=== PATIENT | male | born 1950 | race Caucasian/White ===

== ENCOUNTER → 2023-02-07 07:37 | Outpatient (REF) | payer OTHER, SELFPAY | LOC: WOUND 07:37 | PROVIDERS: ATTENDING PHYSICIAN Surgery; REFERRING PHYSICIAN Family Medicine | DX: L97.222 Non-pressure chronic ulcer of left calf with fat layer exposed (principal); L97.312 Non-pressure chronic ulcer of right ankle with fat layer exposed; J96.12 Chronic respiratory failure with hypercapnia; N18.4 Chronic kidney disease, stage 4 (severe); J98.4 Other disorders of lung; F17.201 Nicotine dependence, unspecified, in remission; I48.92 Unspecified atrial flutter | CPT/HCPCS: 11042; 11045; 99204 ==